=== PATIENT | female | born 1950 | race Caucasian/White ===

== ENCOUNTER 2016-10-30 23:06 | Emergency (ER) | payer MEDICARE ==
[2016-10-31 02:27] LABS: HEMOGLOBIN 9.8 gm/dl (12.3-15.3); RED BLOOD COUNT 2.86 M/UL (4.00-5.10); WHITE BLOOD COUNT 6.8 K/UL (4.5-11.0)
[2016-10-31 02:39] LABS: BUN/CREATININE RATIO 15 (0-10)
== END 2016-10-31 07:35 | disposition home or self-care (01) ==
LOC: ER1 23:06
PROVIDERS: Student in an Organized Health Care Education/Training Program
DX: K92.0 Hematemesis (principal); D64.9 Anemia, unspecified; N39.0 Urinary tract infection, site not specified; I12.9 Hypertensive chronic kidney disease with stage 1 through stage 4 chronic kidney disease, or unspecified chronic kidney disease; N18.9 Chronic kidney disease, unspecified; Z88.8 Allergy status to other drugs, medicaments and biological substances
CPT/HCPCS: 36415; 80053; 81001; 82272; 83690; 85025; 85610; 85730; 87086; 96361; 96374; 96375; 99284; C9113; J0696; J2405; J7030; J7050

== ENCOUNTER → 2016-11-18 | Outpatient (CLI) | payer MEDICARE | LOC: RAD 16:44 | DX: R63.4 Abnormal weight loss (principal); Z88.8 Allergy status to other drugs, medicaments and biological substances | CPT/HCPCS: 71020 ==